=== PATIENT | female | born 1985 | race Two or more races ===

== ENCOUNTER 2016-11-30 21:41 | Emergency (ER) | payer SELFPAY ==
[~2016-11-30 21:41] MED LIST: CYCL10TA2 PO; HYDR-971 PO; LISI1TAB3 PO
[2016-12-01] MEDS ORDERED: OXYCODONE/APAP 5/325 TABLET. PO ONE
[2016-12-01] MEDS ORDERED: ORPHENADRINE CITRATE 60 MG/2 ML VIAL. IM ONE
--- NOTE | 2016-12-01 00:07 | PHYS DOC ---
Past Medical History Past Medical History: Bipolar, Hypertension Additional Past Medical Histor: back pain Past Surgical History: Smoking: Quit Greater Than 1 Year Alcohol Use: Occasionally Drug Use: None Adult General Chief Complaint Chief Complaint: BACK PAIN OR INJURY [facility] HPI Patient is a 30 year old female who presents with mid-back pain for 2 days. She reports that she fell 2 nights ago and hit her back against a wooden box. She was intoxicated at the time and does not remember the fall. Her friends witnessed the fall and report that she did not hit her head or lose consciousness with the fall. She has had shortness of breath since the injury due to the pain in her back. She denies headache, neck pain, weakness, or numbness. Upon arrival to the emergency department, her blood pressure is markedly elevated. She states that she took her blood pressure medications today. She does not have a headache or vision changes, which she often has with elevated blood pressure. She does not have a PCP. Review of Systems Review of Systems Constitutional: Denies fever or chills. [] Eyes: Denies change in visual acuity, redness, or eye pain. [] Respiratory: Denies cough. Reports shortness of breath. Cardiovascular: Denies chest pain. [] GI: Denies abdominal pain, nausea, vomiting. [] Musculoskeletal: Denies neck pain or joint pain. Reports mid-back pain. Integument: Denies rash or skin lesions. Denies laceration, abrasion, or ecchymosis. Neurologic: Denies headache, focal weakness or sensory changes. Denies loss of consciousness. All systems reviewed and negative unless otherwise stated in the HPI. Current Medications Current Medications Current Medications Medications (Trade) Dose Ordered Sig/Bryan Start Time Stop Time Status Last Admin Dose Admin Clonidine HCl (Catapres) 0.1 mg 1X ONCE 12/01/16 02:00 12/01/16 02:00 DC 12/01/16 01:49 0.1 MG Orphenadrine Citrate (Norflex) 60 mg 1X ONCE 12/01/16 00:00 12/01/16 00:01 DC 12/01/16 00:35 60 MG Oxycodone/ Acetaminophen (Percocet 5/325) 1 tab 1X ONCE 12/01/16 00:00 12/01/16 00:01 DC 12/01/16 00:34 1 TAB Allergies Allergies Allergies Coded Allergies Type Severity Reaction Last Updated Verified doxycycline Allergy Intermediate Hives 11/23/13 Yes Physical Exam Physical Exam Constitutional: Well developed, well nourished, no acute distress, non-toxic appearance. [] HENT: Normocephalic, atraumatic, oropharynx moist. [] Eyes: PERRLA, EOMI, conjunctiva normal, no discharge. [] Neck: Normal range of motion, no midline or paraspinal tenderness, supple, no stridor. [] Cardiovascular: Heart rate regular rhythm, no murmur. [] Lungs & Thorax: Bilateral breath sounds clear to auscultation without wheezes, rales, or rhonchi. [] Skin: Warm, dry, no erythema, no rash. There is no laceration, abrasion, ecchymosis, or other external sign of trauma. Back: Thoracic midline tenderness with right paraspinal muscle tenderness, no CVA tenderness. [] Extremities: No tenderness, ROM intact, no edema. Distal pulses equal bilaterally. [] Neurologic: Alert and oriented X 3, normal motor function, normal sensory function, no focal deficits noted. CN II-XII grossly intact. Psychologic: Affect normal, judgement normal, mood normal. [] Current Patient Data Vital Signs Vital Signs Date Time Temp Pulse Resp B/P Pulse Ox O2 Delivery O2 Flow Rate FiO2 12/01/16 01:49 88 237/134 12/01/16 00:34 Room Air 11/30/16 23:34 16 99 Lab Values Laboratory Tests Test 12/01/16 01:41 POC Hemoglobin 14.6g/dL (12-15) POC Hematocrit 43% (36-40) H POC Sodium 141mmol/L (135-145) POC Potassium 3.3mmol/L (3.5-5.0) L POC Chloride 104mmol/L (98-110) POC Total CO2 23mmol/L (23-32) Anion Gap 18mmol/L (6-14) H POC Blood Urea Nitrogen 10mg/dL (8-26) POC Creatinine 0.7mg/dL (0.5-1.4) Glucose Level 91mg/dL (70-99) POC Ionized Calcium (Pacheco) 1.14mmol/L (1.13-1.32) Laboratory Tests 12/01/16 01:41 EKG EKG [] Radiology/Procedures Radiology/Procedures X-rays of the thoracic spine reviewed and interpreted by myself with Dr. Cast. There are no acute fractures or dislocations. Course & Med Decision Making Course & Med Decision Making Pertinent Labs and Imaging studies reviewed. (See chart for details) Patient reported significant pain improvement after IM Norflex and oral Percocet. Upon arrival to the emergency department, her blood pressure was significantly elevated. Recheck of her blood pressure prior to discharge was still elevated. I discussed the patient with Dr. Cast. He recommends iSTAT to check renal function to assess for end-organ damage. Creatinine is 0.7 on iSTAT. The patient was given po clonidine 0.1mg in the emergency department. She was instructed to follow up with her PCP regarding her blood pressure as soon as possible. Return precautions were discussed. She verbalizes understanding and agrees with plan. Dragon Disclaimer Dragon Disclaimer This electronic medical record was generated, in whole or in part, using a voice recognition dictation system. Departure Departure Impression: Primary Impression: Thoracic back pain Additional Impression: Hypertension Disposition: 01 HOME, SELF-CARE Condition: IMPROVED Referrals: UNKNOWN PCP NAME (PCP) Patient Instructions: Back Pain, Adult, [id number] Additional Instructions: Your x-ray did not show any broken bones or dislocations. Please take the prescribed pain medication and muscle relaxer as directed. Do not drive or operate heavy machinery while taking these medications. Please avoid bending or lifting activities that may further strain your back. Please follow-up with a primary care provider if your pain continues. Return to the emergency department if you have weakness or numbness, difficulty breathing, or other new or concerning symptoms. Scripts Methocarbamol (Robaxin)500 Mg [id number] Mg PO QID #20 TAB Prov:ONIEL FISH 12/01/16 Hydrocodone/Apap 5-325 ([place] 5-325 Tablet)1 Each Tablet1 Tab PO PRN Q6HRS PRN PAIN #20 TAB Prov:ONIEL FISH 12/01/16 Problem Qualifiers Primary Impression: Thoracic back pain Chronicity: acute Back pain laterality: midline Qualified Code: M54.6 - Pain in thoracic spine Additional Impression: Hypertension Hypertension type: essential hypertension Qualified Code: I10 - Essential ( primary) hypertension ONIEL FISH Dec 01, 2016 00:07
[2016-12-01] MEDS ORDERED: METH-37 PO (01:14)
[2016-12-01] MEDS ORDERED: HYDR-971 PO (01:14)
[2016-12-01 01:44] LABS: POTASSIUM ISTAT 3.3 mmol/L (3.5-5.0)
[2016-12-01 01:49] VITALS: BP 237/134
[2016-12-01] MEDS ORDERED: CLONIDINE HCL 0.1 MG TABLET PO ONE (02:00)
--- NOTE | 2016-12-01 07:12 | RAD ---
Thoracic spine, 3 views, 11/30/2016: History: Pain, fall No fracture is identified. There are mild scattered marginal spurs. The paraspinous soft tissues are unremarkable. IMPRESSION: No acute thoracic spine abnormality is detected.
== END 2016-12-01 01:52 | disposition home or self-care (01) ==
LOC: ER 21:41
DX: M54.6 Pain in thoracic spine (principal); I10 Essential (primary) hypertension; F31.9 Bipolar disorder, unspecified; Z87.891 Personal history of nicotine dependence; Z88.1 Allergy status to other antibiotic agents
CPT/HCPCS: 72072; 80047; 96372; 99284; J2360

== ENCOUNTER 2017-05-03 20:57 | Emergency (ER) | payer SELFPAY ==
[~2017-05-03] VITALS: Ht 157.5 cm; Wt 99.8 kg
[~2017-05-03 20:57] MED LIST changes: +METH-37 PO
[2017-05-03 21:25] VITALS: BP 160/105
--- NOTE | 2017-05-03 21:53 | PHYS DOC ---
Past Medical History Past Medical History: Bipolar, Depression, Diabetes-Type II, High Cholesterol, Hypertension Additional Past Medical Histor: back pain Past Surgical History: , Other Additional Past Surgical Histo: L shoulder fx Alcohol Use: Occasionally Drug Use: None Adult General Chief Complaint Chief Complaint: UPPER EXTREMITY PAIN HPI HPI Patient is a 31 year old female presents emergency department stating that she has having left shoulder pain and discomfort that radiates up into her neck. She states that it does radiate up into her head. She states that she's been taken some naproxen which is helped some of the pain and swelling. She states she has decreased range of motion in the shoulder area. She states she does have a history of a fracture. She denies any numbness or tingling. She does have equal sensation noted bilaterally. Patient denies any injury or trauma to the upper extremity. Review of Systems Review of Systems Constitutional: Denies fever or chills [] Eyes: Denies change in visual acuity, redness, or eye pain [] HENT: Denies nasal congestion or sore throat [] Respiratory: Denies cough or shortness of breath [] Cardiovascular: No additional information not addressed in HPI [] GI: Denies abdominal pain, nausea, vomiting, bloody stools or diarrhea [] : Denies dysuria or hematuria [] Musculoskeletal: Denies back pain. Patient complaint of left shoulder pain and discomfort. Integument: Denies rash or skin lesions [] Neurologic: Denies headache, focal weakness or sensory changes [] Endocrine: Denies polyuria or polydipsia [] Allergies Allergies Allergies Coded Allergies Type Severity Reaction Last Updated Verified doxycycline Allergy Intermediate Hives 11/23/13 Yes Physical Exam Physical Exam Constitutional: Well developed, well nourished, no acute distress, non-toxic appearance. [] HENT: Normocephalic, atraumatic, bilateral external ears normal, oropharynx moist, no oral exudates, nose normal. [] Eyes: PERRLA, EOMI, conjunctiva normal, no discharge. [] Neck: Normal range of motion, no tenderness, supple, no stridor. [] Cardiovascular:Heart rate regular rhythm, no murmur [] Lungs & Thorax: Bilateral breath sounds clear to auscultation [] Skin: Warm, dry, no erythema, no rash. [] Back: No tenderness Extremities: Left upper shoulder tenderness, no cyanosis, no clubbing, ROM intact, no edema. Patient with slightly less marking machine tender on the left than the right. Patient with equal sensation noted bilaterally. Neurologic: Alert and oriented X 3, normal motor function, normal sensory function, no focal deficits noted. [] Psychologic: Affect normal, judgement normal, mood normal. [] Current Patient Data Vital Signs Vital Signs Date Time Temp Pulse Resp B/P (MAP) Pulse Ox O2 Delivery O2 Flow Rate FiO2 05/03/17 21:25 98.3 83 20 99 Room Air 98.3 EKG EKG [] Radiology/Procedures Radiology/Procedures [] Course & Med Decision Making Course & Med Decision Making Pertinent Labs and Imaging studies reviewed. (See chart for details) X-ray negative for bony abnormality. Patient will be placed in a sling with recommendations for ice packs on 20 minutes off 20 minutes several times a day. Patient was also recommended continue to use her naproxen. She'll be provided with orthopedic name and number to follow up with. Signs and symptoms to return back to emergency department has been provided. [] Dragon Disclaimer Dragon Disclaimer This electronic medical record was generated, in whole or in part, using a voice recognition dictation system. Departure Departure Impression: Primary Impression: Left shoulder pain Disposition: HOME, SELF-CARE Condition: STABLE Referrals: NO PCP (PCP) DANIEL GUERRERO MD Patient Instructions: Arm Sling Use-Brief, Shoulder Pain, [id number] Additional Instructions: Activity as tolerated Naproxen for pain and discomfort Ice packs on 20 minutes and off 20 minutes several times a day Elevation as much as possible Followup with primary care provider in 1 week Return to emergency department as needed for signs and symptoms that become worse. SHUN LUCIANO [employer] May 03, 2017 21:53
--- NOTE | 2017-05-04 07:26 | RAD ---
Indication: Left shoulder pain for 3 days. Time of exam 2157 hours. 3 views of the left shoulder demonstrate normal glenohumeral and acromioclavicular alignment. The acromiohumeral space is normal. No fracture or dislocation is identified. Impression: No acute bony abnormality is detected.
== END 2017-05-03 22:30 | disposition home or self-care (01) ==
LOC: ER 20:57
DX: M25.512 Pain in left shoulder (principal); E11.9 Type 2 diabetes mellitus without complications; E78.00 Pure hypercholesterolemia, unspecified; I10 Essential (primary) hypertension; F31.9 Bipolar disorder, unspecified; Z88.1 Allergy status to other antibiotic agents
CPT/HCPCS: 73030; 99284

== ENCOUNTER 2017-07-08 22:53 | Emergency (ER) | payer SELFPAY ==
[~2017-07-08] VITALS: Ht 157.5 cm; Wt 99.8 kg
[2017-07-08] MEDS ORDERED: CYCL10TA2 PO (23:29)
[2017-07-08] MEDS ORDERED: LISI1TAB3 PO (23:29)
[2017-07-08] MEDS ORDERED: TRAM50TA PO (23:29)
[2017-07-08] MEDS ORDERED: NAPR500T PO (23:29)
--- NOTE | 2017-07-08 23:30 | PHYS DOC ---
Past Medical History Past Medical History: Bipolar, Depression, Diabetes-Type II, High Cholesterol, Hypertension Additional Past Medical Histor: back pain Past Surgical History: , Tubal ligation, Other Additional Past Surgical Histo: L shoulder fx Alcohol Use: Occasionally Drug Use: None Adult General Chief Complaint Chief Complaint: SHOUDLER HPI HPI Patient is a 31 year old female presents to the emergency department with right upper back pain. She states that 2 days ago she was pushing a machine developed upper back pain. She states it's gotten progressively worse. She is here now seeking further evaluation. Review of Systems Review of Systems Constitutional: Denies fever or chills [] Eyes: Denies change in visual acuity, redness, or eye pain [] HENT: Denies nasal congestion or sore throat [] Respiratory: Denies cough or shortness of breath [] Cardiovascular: No additional information not addressed in HPI [] GI: Denies abdominal pain, nausea, vomiting, bloody stools or diarrhea [] : Denies dysuria or hematuria [] Musculoskeletal: Upper back pain Integument: Denies rash or skin lesions [] Neurologic: Denies headache, focal weakness or sensory changes [] Endocrine: Denies polyuria or polydipsia [] Current Medications Current Medications Current Medications Medications (Trade) Dose Ordered Sig/Bryan Start Time Stop Time Status Last Admin Dose Admin Clonidine HCl (Catapres) 0.1 mg 1X ONCE 07/08/17 23:45 07/08/17 23:46 07/08/17 23:31 0.1 MG Allergies Allergies Allergies Coded Allergies Type Severity Reaction Last Updated Verified doxycycline Allergy Intermediate Hives 11/23/13 Yes Physical Exam Physical Exam Constitutional: Well developed, well nourished, no acute distress, non-toxic appearance. [] HENT: Normocephalic, atraumatic, bilateral external ears normal, oropharynx moist, no oral exudates, nose normal. [] Eyes: PERRLA, EOMI, conjunctiva normal, no discharge. [] Neck: Normal range of motion, no tenderness, supple, no stridor. [] Cardiovascular:Heart rate regular rhythm, no murmur [] Lungs & Thorax: Bilateral breath sounds clear to auscultation [] Abdomen: Bowel sounds normal, soft, no tenderness, no masses, no pulsatile masses. [] Skin: Warm, dry, no erythema, no rash. [] Back: Tender so the right trapezius. She has full range of motion of the right upper extremity without difficulty. Extremities: No tenderness, no cyanosis, no clubbing, ROM intact, no edema. [] Neurovascular intact distally. Neurologic: Alert and oriented X 3, normal motor function, normal sensory function, no focal deficits noted. [] Psychologic: Affect normal, judgement normal, mood normal. [] Current Patient Data Vital Signs Vital Signs Date Time Temp Pulse Resp B/P (MAP) Pulse Ox O2 Delivery O2 Flow Rate FiO2 07/08/17 23:31 68 186/116 07/08/17 23:12 98.0 20 97 Room Air 98.0 EKG EKG [] Radiology/Procedures Radiology/Procedures [] Course & Med Decision Making Course & Med Decision Making Pertinent Labs and Imaging studies reviewed. (See chart for details) [] Since blood pressure was elevated at 211/117. Patient states she took her hydrochlorothiazide 25 mg tablet prior to arrival in the emergency department this evening. Patient reports that her blood pressures been consistently high. She does follow at the [facility] clinic. She states she has not had an appointment for 6-7 months but plans to go in the following Thursday. Patient was treated in the emergency Department with clonidine 0.1 mg for reduction in her blood pressure tp 178/90. At this time it is elected to start her on lisinopril 10 mg combination in with hydrochlorothiazide 12.5 mg 1 tablet daily. She was advised to continue plan with follow-up in 6 days as previously scheduled. She is to return to the emergency Department for new symptoms or concerns or worsening of current condition. Dragon Disclaimer Dragon Disclaimer This electronic medical record was generated, in whole or in part, using a voice recognition dictation system. Departure Departure Impression: Primary Impression: Shoulder pain, right Additional Impression: Hypertension Disposition: HOME, SELF-CARE Condition: STABLE Referrals: UNKNOWN PCP NAME (PCP) [facility] Patient Instructions: Hypertension, Shoulder Pain Scripts Tramadol Hcl (TRAMADOL HCL) 50 Mg Tablet 50 MG PO Q8HRS Y for PAIN, #12 TAB 0 Refills Prov: TARA BAZAN APRN 07/08/17 Naproxen (NAPROSYN) 500 Mg Tablet 500 MG PO BID, #20 TAB Prov: TARA BAZAN APRN 07/08/17 Cyclobenzaprine Hcl (CYCLOBENZAPRINE HCL) 10 Mg Tablet 10 MG PO TID, #30 TAB Prov: TARA BAZAN APRN 07/08/17 Lisinopril/Hydrochlorothiazide (LISINOPRIL-HCTZ 10-12.5 MG TAB) 1 Each Tablet 1 TAB PO DAILY, #30 TAB 5 Refills Prov: TARA BAZAN APRN 07/08/17 Problem Qualifiers Primary Impression: Shoulder pain, right Chronicity: acute Qualified Codes: M25.511 - Pain in right shoulder Additional Impression: Hypertension Hypertension type: unspecified Qualified Codes: I10 - Essential (primary) hypertension TARA BAZAN APRN Jul 08, 2017 23:30
[2017-07-08 23:31] VITALS: BP 186/116
[2017-07-08] MEDS ORDERED: cloNIDine HCL 0.1 MG TABLET PO ONE (23:45)
== END 2017-07-08 23:39 | disposition home or self-care (01) ==
LOC: ER 22:53
DX: M25.511 Pain in right shoulder (principal); I10 Essential (primary) hypertension; F31.9 Bipolar disorder, unspecified; E11.9 Type 2 diabetes mellitus without complications; E78.00 Pure hypercholesterolemia, unspecified; Z88.1 Allergy status to other antibiotic agents
CPT/HCPCS: 99283

== ENCOUNTER 2017-11-05 04:52 | Emergency (ER) | payer BC ==
[2017-11-05] MEDS: KETOROLAC 60 MG/2 ML INJ. IM (05:35)
[2017-11-05] MEDS: ORPHENADRINE CITRATE 60 MG/2 ML VIAL. IM (05:35)
[2017-11-05] MEDS: HYDROcodone/APAP 10/325 1 TAB TABLET PO (05:36)
== END 2017-11-05 06:55 | disposition home or self-care (01) ==
LOC: ER 04:52
DX: S39.012A Strain of muscle, fascia and tendon of lower back, initial encounter (principal); F31.9 Bipolar disorder, unspecified; E11.9 Type 2 diabetes mellitus without complications; E78.00 Pure hypercholesterolemia, unspecified; I10 Essential (primary) hypertension; F12.10 Cannabis abuse, uncomplicated; Z98.51 Tubal ligation status; Z88.1 Allergy status to other antibiotic agents; X58.XXXA Exposure to other specified factors, initial encounter; Y93.89 Activity, other specified; Y92.89 Other specified places as the place of occurrence of the external cause; Y99.8 Other external cause status
CPT/HCPCS: 96372; 99284-25; J1885; J2360

== ENCOUNTER 2017-12-06 19:22 | Emergency (ER) | payer BC | END 2017-12-06 20:45 | disposition home or self-care (01) | LOC: ER 19:22 | DX: S90.31XA Contusion of right foot, initial encounter (principal); F31.9 Bipolar disorder, unspecified; E11.9 Type 2 diabetes mellitus without complications; E78.00 Pure hypercholesterolemia, unspecified; I10 Essential (primary) hypertension; F12.10 Cannabis abuse, uncomplicated; Z98.51 Tubal ligation status; Z88.1 Allergy status to other antibiotic agents; W22.8XXA Striking against or struck by other objects, initial encounter; Y93.89 Activity, other specified; Y92.009 Unspecified place in unspecified non-institutional (private) residence as the place of occurrence of the external cause; Y99.8 Other external cause status | CPT/HCPCS: 73630; 99284 ==

== ENCOUNTER 2017-12-12 02:45 | Emergency (ER) | payer BC ==
[2017-12-12] MEDS: ACETAMINOPHEN 500 MG TABLET PO ×2 (03:15)
[2017-12-12 03:17] LABS: INFLUENZA A PATIENT NEGATIVE (NEGATIVE)
[2017-12-12 03:18] LABS: INFLUENZA B PATIENT POSITIVE (NEGATIVE); OBC FLU VALID
[2017-12-12] MEDS: cloNIDine HCL 0.1 MG TABLET PO ×2 (04:00)
== END 2017-12-12 04:14 | disposition home or self-care (01) ==
LOC: ER 02:45
DX: J10.1 Influenza due to other identified influenza virus with other respiratory manifestations (principal); I10 Essential (primary) hypertension; F31.9 Bipolar disorder, unspecified; E11.9 Type 2 diabetes mellitus without complications; E78.00 Pure hypercholesterolemia, unspecified; F12.10 Cannabis abuse, uncomplicated; Z98.51 Tubal ligation status; Z87.891 Personal history of nicotine dependence; Z88.1 Allergy status to other antibiotic agents
CPT/HCPCS: 71046; 87804; 87804-59; 99285-25

== ENCOUNTER 2017-12-26 11:45 | Emergency (ER) | payer BC ==
[2017-12-26] MEDS: ERYTHROMYCIN 0.5% OPHTH OINTMENT 1GM TUBE. OS ×2 (12:07)
== END 2017-12-26 12:10 | disposition home or self-care (01) ==
LOC: ER 11:45
DX: H10.32 Unspecified acute conjunctivitis, left eye (principal); F31.9 Bipolar disorder, unspecified; E11.9 Type 2 diabetes mellitus without complications; E78.00 Pure hypercholesterolemia, unspecified; I10 Essential (primary) hypertension; F12.10 Cannabis abuse, uncomplicated; Z98.51 Tubal ligation status; Z88.1 Allergy status to other antibiotic agents
CPT/HCPCS: 99283

== ENCOUNTER 2018-01-17 14:00 | Emergency (ER) | payer BC ==
[2018-01-17] MEDS: diazePAM 5 MG TABLET PO (15:09)
[2018-01-17] MEDS: NAPROXEN 500 MG TABLET PO (15:09)
[2018-01-17] MEDS: HYDROcodone/APAP 5/325MG 1 TAB TABLET PO (15:09)
== END 2018-01-17 15:36 | disposition home or self-care (01) ==
LOC: ER 14:00
DX: M54.41 Lumbago with sciatica, right side (principal); I10 Essential (primary) hypertension; E78.00 Pure hypercholesterolemia, unspecified; E11.9 Type 2 diabetes mellitus without complications; F31.9 Bipolar disorder, unspecified; F12.10 Cannabis abuse, uncomplicated; Z98.51 Tubal ligation status; Z88.1 Allergy status to other antibiotic agents
CPT/HCPCS: 99284

== ENCOUNTER 2018-01-29 14:08 | Emergency (ER) | payer BC | END 2018-01-29 15:20 | disposition home or self-care (01) | LOC: ER 14:08 | DX: L25.9 Unspecified contact dermatitis, unspecified cause (principal); H70.91 Unspecified mastoiditis, right ear; H65.191 Other acute nonsuppurative otitis media, right ear; I10 Essential (primary) hypertension; F17.210 Nicotine dependence, cigarettes, uncomplicated; Z88.1 Allergy status to other antibiotic agents | CPT/HCPCS: 99283 ==

== ENCOUNTER 2018-03-01 00:04 | Emergency (ER) | payer BC ==
[2018-03-01 00:43] LABS: URINE HCG POC HCG NEGATIVE (Negative)
[2018-03-01 00:48] LABS: BILIRUBIN,URINE NEGATIVE (NEG); CLARITY,URINE CLEAR; COLOR,URINE YELLOW; GLUCOSE,URINE NEGATIVE (NEG); NITRITE,URINE NEGATIVE (NEG); PROTEIN,URINE NEGATIVE (NEG-TRACE); UROBILINOGEN,URINE 0.2 mg/dL (0.2 mg/dL)
[2018-03-01 00:52] LABS: ADD MAN DIFF? NO
[2018-03-01 00:54] LABS: BASO # 0.1 x10^3/uL (0.0-0.2); BASO % 1 % (0-3); EOS # 0.4 x10^3/uL (0.0-0.7); EOS % 4 % (0-3); HEMOGLOBIN 14.2 g/dL (12.0-15.5); LYMPH # 2.5 x10^3/uL (1.0-4.8); LYMPH % 23 % (24-48); MEAN CORPUSCULAR HEMOGLOBIN 32 pg (25-35); MEAN CORPUSCULAR HGB CONC 35 g/dL (31-37); MEAN CORPUSCULAR VOLUME 91 fL (79-100); MONO # 0.5 x10^3/uL (0.0-1.1); MONO % 4 % (0-9); NEUT # 7.5 x10^3uL (1.8-7.7); NEUT % 68 % (31-73); PLATELET COUNT 226 x10^3/uL (140-400); RED BLOOD COUNT 4.51 x10^6/uL (3.50-5.40); RED CELL DISTRIBUTION WIDTH 14.4 % (11.5-14.5); WHITE BLOOD COUNT 11.1 x10^3/uL (4.0-11.0)
[2018-03-01 00:58] LABS: BACTERIA,URINE FEW /HPF (0-FEW); SQUAMOUS EPITHELIAL CELL,UR MANY /LPF
[2018-03-01 01:11] LABS: ALBUMIN 2.7 g/dL (3.4-5.0); ALBUMIN/GLOBULIN RATIO 0.6 (1.0-1.7); ALK PHOS 96 U/L (46-116); ALT (SGPT) 44 U/L (14-59); ANION GAP 12 (6-14); AST (SGOT) 30 U/L (15-37); BLOOD UREA NITROGEN 18 mg/dL (7-20); BUN/CREATININE RATIO 20 (6-20); CALCIUM 8.1 mg/dL (8.5-10.1); CARBON DIOXIDE 24 mmol/L (21-32); CHLORIDE 106 mmol/L (98-107); CREATININE 0.9 mg/dL (0.6-1.0); GFR 72.1; GLUCOSE 157 mg/dL (70-99); SODIUM 142 mmol/L (136-145); TOTAL BILIRUBIN 0.2 mg/dL (0.2-1.0)
[2018-03-01 01:14] LABS: POTASSIUM 2.9 mmol/L (3.5-5.1)
[2018-03-01] MEDS: POTASSIUM CHLORIDE 20 MEQ TABLET.ER. PO (01:26)
== END 2018-03-01 03:45 | disposition home or self-care (01) ==
LOC: ER 00:04
DX: N23 Unspecified renal colic (principal); E87.6 Hypokalemia; F12.10 Cannabis abuse, uncomplicated; I10 Essential (primary) hypertension; Z98.51 Tubal ligation status; Z88.1 Allergy status to other antibiotic agents
CPT/HCPCS: 36415; 74176; 80053; 81001; 81025; 85025; 93005; 99285-25

== ENCOUNTER 2018-04-05 15:20 | Emergency (ER) | payer BC ==
[2018-04-05] MEDS ORDERED: IV NORMAL SALINE 1000ML BAG 1,000 ML IV (15:30)
[2018-04-05] MEDS ORDERED: ONDANSETRON PF 4 MG/2 ML VIAL. IV (15:30)
== END 2018-04-05 16:00 | disposition home or self-care (01) ==
LOC: ER 15:20
DX: K21.9 Gastro-esophageal reflux disease without esophagitis (principal); I10 Essential (primary) hypertension; F12.10 Cannabis abuse, uncomplicated; Z79.899 Other long term (current) drug therapy; Z88.1 Allergy status to other antibiotic agents
CPT/HCPCS: 99282

== ENCOUNTER 2018-11-08 06:48 | Emergency (ER) | payer SELFPAY ==
[~2018-11-08] VITALS: Ht 157.5 cm; Wt 113.4 kg
[~2018-11-08 06:48] MED LIST changes: +AMOX875T PO; +ERYT1OIN6 OS; +FAMO20TA5 PO; +HYDR-3164 PO; -HYDR-971 PO; +IBUP-1007 PO; +NAPR-514 PO; +NAPR-683 PO; +OSEL75CA PO; +POTA20TA82 PO; +PRED50TA PO; +RANI150T21 PO; +TRAM50TA PO; +TRIA15CR3 TP
[2018-11-08] MEDS ORDERED: IV NORMAL SALINE 1000ML BAG 1,000 ML IV ONE (07:30)
[2018-11-08] MEDS ORDERED: ONDANSETRON PF 4 MG/2 ML VIAL. IV ONE (07:30)
[2018-11-08] MEDS ORDERED: fentaNYL PF VIAL 100 MCG/2 ML VIAL IV ONE (07:30)
--- NOTE | 2018-11-08 07:33 | PHYS DOC ---
Past Medical History Past Medical History: Hypertension Additional Past Medical Histor: back pain Past Surgical History: , Tubal ligation Additional Past Surgical Histo: L shoulder fx Alcohol Use: Occasionally Drug Use: Marijuana Adult General Chief Complaint Chief Complaint: ABDOMINAL PAIN HPI HPI 32-year-old female presents with 2-3 hour history of right upper quadrant pain. She states the pain is severe and radiates to her right upper back. She does have some associated nausea and vomiting. Patient denies any fever chills or sweats. She states she's never had this kind of pain before. She's never had gallbladder problems that she knows of. She denies any melena or hematemesis. She denies any NSAID use.[] Review of Systems Review of Systems Constitutional: Denies fever or chills [] Eyes: Denies change in visual acuity, redness, or eye pain [] HENT: Denies nasal congestion or sore throat [] Respiratory: Denies cough or shortness of breath [] Cardiovascular: No additional information not addressed in HPI [] GI: Per history of present illness[] : Denies dysuria or hematuria [] Musculoskeletal: Denies back pain or joint pain [] Integument: Denies rash or skin lesions [] Neurologic: Denies headache, focal weakness or sensory changes [] Endocrine: Denies polyuria or polydipsia [] All other systems were reviewed and found to be within normal limits, except as documented in this note. Current Medications Current Medications Current Medications Medications (Trade) Dose Ordered Sig/Bryan Start Time Stop Time Status Last Admin Dose Admin Fentanyl Citrate (Fentanyl 2ml Vial) 50 mcg 1X ONCE 11/08/18 07:30 11/08/18 07:31 DC 11/08/18 08:26 50 MCG Ondansetron HCl (Zofran) 4 mg 1X ONCE 11/08/18 07:30 11/08/18 07:31 DC 11/08/18 08:23 4 MG Sodium Chloride 1,000 ml @ 1,000 mls/hr 1X ONCE 11/08/18 07:30 11/08/18 08:29 DC 11/08/18 08:22 1,000 MLS/HR Allergies Allergies Allergies Coded Allergies Type Severity Reaction Last Updated Verified doxycycline Allergy Intermediate Hives 11/23/13 Yes Physical Exam Physical Exam Constitutional: Well developed, well nourished, no acute distress, non-toxic appearance. [] HENT: Normocephalic, atraumatic, bilateral external ears normal, oropharynx moist, no oral exudates, nose normal. [] Eyes: PERRLA, EOMI, conjunctiva normal, no discharge. [] Neck: Normal range of motion, no tenderness, supple, no stridor. [] Cardiovascular:Heart rate regular rhythm, no murmur [] Lungs & Thorax: Bilateral breath sounds clear to auscultation [] Abdomen: Right upper quadrant pain tender to palp positive Pereira's[] Skin: Warm, dry, no erythema, no rash. [] Back: No tenderness, no CVA tenderness. [] Extremities: No tenderness, no cyanosis, no clubbing, ROM intact, no edema. [] Neurologic: Alert and oriented X 3, normal motor function, normal sensory function, no focal deficits noted. [] Psychologic: Affect normal, judgement normal, mood normal. [] Current Patient Data Vital Signs Vital Signs Date Time Temp Pulse Resp B/P (MAP) Pulse Ox O2 Delivery O2 Flow Rate FiO2 11/08/18 09:00 72 16 165/99 (121) 93 Room Air 11/08/18 07:27 97.8 97.8 Lab Values Laboratory Tests Test 11/08/18 07:35 11/08/18 07:39 11/08/18 08:09 Urine Collection Type Clean catch Urine Color Yellow Urine Clarity Clear Urine pH 6.5 Urine Specific Etlan 1.020 Urine Protein 30 mg/dL (NEG-TRACE) Urine Glucose (UA) Negative mg/dL (NEG) Urine Ketones (Stick) Negative mg/dL (NEG) Urine Blood Negative (NEG) Urine Nitrite Negative (NEG) Urine Bilirubin Negative (NEG) Urine Urobilinogen Dipstick 0.2 mg/dL (0.2 mg/dL) Urine Leukocyte Esterase Small (NEG) Urine RBC Occ /HPF (0-2) Urine WBC 1-4 /HPF (0-4) Urine Squamous Epithelial Cells Few /LPF Urine Bacteria Few /HPF (0-FEW) Urine Mucus Slight /LPF POC Urine HCG, Qualitative Hcg negative (Negative) White Blood Count 7.5 x10^3/uL (4.0-11.0) Red Blood Count 4.36 x10^6/uL (3.50-5.40) Hemoglobin 14.3 g/dL (12.0-15.5) Hematocrit 40.1 % (36.0-47.0) Mean Corpuscular Volume 92 fL (79-100) Mean Corpuscular Hemoglobin 33 pg (25-35) Mean Corpuscular Hemoglobin Concent 36 g/dL (31-37) Red Cell Distribution Width 14.5 % (11.5-14.5) Platelet Count 202 x10^3/uL (140-400) Neutrophils (%) (Auto) 60 % (31-73) Lymphocytes (%) (Auto) 30 % (24-48) Monocytes (%) (Auto) 7 % (0-9) Eosinophils (%) (Auto) 3 % (0-3) Basophils (%) (Auto) 1 % (0-3) Neutrophils # (Auto) 4.4 x10^3uL (1.8-7.7) Lymphocytes # (Auto) 2.2 x10^3/uL (1.0-4.8) Monocytes # (Auto) 0.5 x10^3/uL (0.0-1.1) Eosinophils # (Auto) 0.2 x10^3/uL (0.0-0.7) Basophils # (Auto) 0.1 x10^3/uL (0.0-0.2) Sodium Level 141 mmol/L (136-145) Potassium Level 3.0 mmol/L (3.5-5.1) L Chloride Level 102 mmol/L (98-107) Carbon Dioxide Level 29 mmol/L (21-32) Anion Gap 10 (6-14) Blood Urea Nitrogen 16 mg/dL (7-20) Creatinine 1.0 mg/dL (0.6-1.0) Estimated GFR (Cockcroft-Gault) 63.9 BUN/Creatinine Ratio 16 (6-20) Glucose Level 100 mg/dL (70-99) H Calcium Level 8.8 mg/dL (8.5-10.1) Total Bilirubin 0.4 mg/dL (0.2-1.0) Aspartate Amino Transferase (AST) 67 U/L (15-37) H Alanine Aminotransferase (ALT) 70 U/L (14-59) H Alkaline Phosphatase 101 U/L (46-116) Total Protein 7.1 g/dL (6.4-8.2) Albumin 2.8 g/dL (3.4-5.0) L Albumin/Globulin Ratio 0.7 (1.0-1.7) L Lipase 174 U/L (73-393) Laboratory Tests 11/08/18 08:09 Laboratory Tests 11/08/18 08:09 EKG EKG [] Radiology/Procedures Radiology/Procedures [] Impressions: STATUS: REG ERORD. PHYSICIAN: TIMO MEEKS DO REASON: RUQ PAIN PROCEDURE: ABDOMEN LTD EXAM: Abdomen sonogram. HISTORY: Pain. TECHNIQUE: Sonographic imaging of the abdomen was performed. COMPARISON: CT dated 03/01/2018. FINDINGS: The exam is extremely limited due to body habitus and bowel gas. The pancreas, aorta, inferior vena cava, common bile duct gallbladder and portions of the liver are obscured. There is hepatomegaly and hepatic steatosis. The visualized portions the gallbladder are unremarkable. The right kidney is unremarkable. IMPRESSION: 1. Severely limited exam due to bowel gas and body habitus. The midline structures are obscured. 2. Hepatomegaly and hepatic steatosis. Course & Med Decision Making Course & Med Decision Making Pertinent Labs and Imaging studies reviewed. (See chart for details) ED course: Evaluation reveals a 32-year-old female with epigastric/right upper quadrant pain that started this morning. She did have some tenderness in her right upper quadrant on exam. She was given IV fluids, fentanyl 50 g and Zofran which did alleviate her symptoms. I checked on her again approximately 2 hours after arrival and she was pain free. Laboratory studies were unrevealing. Patient is safe for discharge home. I did let her know that she will need further studies on her gallbladder should she develop any similar symptoms. I' ve instructed her about a low-fat no spicy or greasy foods.] Dragon Disclaimer Dragon Disclaimer This electronic medical record was generated, in whole or in part, using a voice recognition dictation system. Departure Departure Impression: Primary Impression: Epigastric pain Disposition: HOME, SELF-CARE Condition: IMPROVED Referrals: NO PCP (PCP) Patient Instructions: Abdominal Pain Additional Instructions: Return to the emergency department with any new or concerning symptoms Scripts Ranitidine Hcl (ZANTAC) 300 Mg Tablet 1 TAB PO QHS for reflux, #90 TAB 3 Refills Prov: TIMO MEEKS DO 11/08/18 Ondansetron (ONDANSETRON ODT) 4 Mg Tab.rapdis 1 TAB PO PRN Q6-8HRS for VOMITING, #16 TAB Prov: TIMO MEEKS DO 11/08/18 TIMO MEEKS DO Nov 08, 2018 07:33
[2018-11-08 08:01] LABS: BILIRUBIN,URINE NEGATIVE (NEG); CLARITY,URINE CLEAR; COLOR,URINE YELLOW; NITRITE,URINE NEGATIVE (NEG); PH,URINE 6.5; PROTEIN,URINE 30 mg/dL (NEG-TRACE); UROBILINOGEN,URINE 0.2 mg/dL (0.2 mg/dL)
[2018-11-08 08:11] LABS: BACTERIA,URINE FEW /HPF (0-FEW); RBC,URINE OCC /HPF (0-2); SQUAMOUS EPITHELIAL CELL,UR FEW /LPF
--- NOTE | 2018-11-08 08:14 | RAD ---
EXAM: Abdomen sonogram. HISTORY: Pain. TECHNIQUE: Sonographic imaging of the abdomen was performed. COMPARISON: CT dated 03/01/2018. FINDINGS: The exam is extremely limited due to body habitus and bowel gas. The pancreas, aorta, inferior vena cava, common bile duct gallbladder and portions of the liver are obscured. There is hepatomegaly and hepatic steatosis. The visualized portions the gallbladder are unremarkable. The right kidney is unremarkable. IMPRESSION: 1. Severely limited exam due to bowel gas and body habitus. The midline structures are obscured. 2. Hepatomegaly and hepatic steatosis. Electronically signed by: Jina Mares MD (11/08/2018 8:10 AM) [facility]
[2018-11-08 08:23] LABS: BASO # 0.1 x10^3/uL (0.0-0.2); BASO % 1 % (0-3); EOS # 0.2 x10^3/uL (0.0-0.7); EOS % 3 % (0-3); HEMATOCRIT 40.1 % (36.0-47.0); HEMOGLOBIN 14.3 g/dL (12.0-15.5); LYMPH # 2.2 x10^3/uL (1.0-4.8); LYMPH % 30 % (24-48); MEAN CORPUSCULAR HEMOGLOBIN 33 pg (25-35); MEAN CORPUSCULAR HGB CONC 36 g/dL (31-37); MEAN CORPUSCULAR VOLUME 92 fL (79-100); MONO # 0.5 x10^3/uL (0.0-1.1); MONO % 7 % (0-9); NEUT # 4.4 x10^3uL (1.8-7.7); NEUT % 60 % (31-73); PLATELET COUNT 202 x10^3/uL (140-400); RED BLOOD COUNT 4.36 x10^6/uL (3.50-5.40); RED CELL DISTRIBUTION WIDTH 14.5 % (11.5-14.5); WHITE BLOOD COUNT 7.5 x10^3/uL (4.0-11.0)
[2018-11-08 08:33] LABS: CALCIUM 8.8 mg/dL (8.5-10.1); GFR 63.9
[2018-11-08 08:39] LABS: ALBUMIN 2.8 g/dL (3.4-5.0); ALBUMIN/GLOBULIN RATIO 0.7 (1.0-1.7); TOTAL BILIRUBIN 0.4 mg/dL (0.2-1.0); TOTAL PROTEIN 7.1 g/dL (6.4-8.2)
[2018-11-08 09:31] VITALS: BP 160/87
[2018-11-08] MEDS ORDERED: RANI300T3 PO (09:34)
[2018-11-08] MEDS ORDERED: ONDA4TAB12 PO (09:34)
== END 2018-11-08 10:01 | disposition home or self-care (01) ==
LOC: ER 06:48
DX: R10.13 Epigastric pain (principal); I10 Essential (primary) hypertension; Z88.1 Allergy status to other antibiotic agents
CPT/HCPCS: 36415; 76705; 80053; 81001; 81025; 83690; 85025; 87086; 96361; 96374; 96375; 99284; J2405; J3010; J7030

== ENCOUNTER 2019-08-13 18:40 | Emergency (ER) | payer SELFPAY ==
[~2019-08-13] VITALS: Ht 157.5 cm; Wt 113.4 kg
[~2019-08-13 18:40] MED LIST changes: +LISI1TAB23 PO; -LISI1TAB3 PO; +ONDA4TAB12 PO; +RANI-376 PO; -RANI150T21 PO; +RANI300T3 PO
--- NOTE | 2019-08-13 19:03 | PHYS DOC ---
Past Medical History Past Medical History: Hypertension Additional Past Medical Histor: back pain Past Surgical History: , Tubal ligation Additional Past Surgical Histo: L shoulder fx Alcohol Use: None Drug Use: None, Marijuana Adult General Chief Complaint Chief Complaint: NEURO SYMPTOMS/DEFICITS HPI HPI Patient is a 33 year old f p/w hx of seizures seizure today manages it at home comes in clusters like 30 minutes tingling of hands and also some of the crampi ng of the b/l hands (she displays a carpal spasm while describing it) was on keppra in the past. she caleld in to work and they asked for a work note prior to coming back. did not take blood pressure medications taking benadryl to stop the "seizures" "it knocks them out very well" meds:hctz smoke, etoh most days 3/4 cocktails a night. currently feeling ok "pulling-ness" in the left face with sharp pain in the left hand. hand is trying to lock up again. Review of Systems Review of Systems Constitutional: Denies fever or chills [] Cardiovascular: No additional information not addressed in HPI [] GI: Denies abdominal pain, nausea, vomiting, bloody stools or diarrhea [] : Denies dysuria or hematuria [] Musculoskeletal: Denies back pain or joint pain [] Integument: Denies rash or skin lesions [] Neurologic: All other systems were reviewed and found to be within normal limits, except as documented in this note. Current Medications Current Medications Current Medications Medications (Trade) Dose Ordered Sig/Bryan Start Time Stop Time Status Last Admin Dose Admin Clonidine HCl (Catapres) 0.2 mg 1X ONCE 08/13/19 19:45 08/13/19 19:46 DC 08/13/19 19:41 0.2 MG Diphenhydramine HCl (Benadryl) 25 mg 1X ONCE 08/13/19 19:30 08/13/19 19:31 DC 08/13/19 19:24 25 MG Ketorolac Tromethamine (Toradol 15mg Vial) 15 mg 1X ONCE 08/13/19 20:45 08/13/19 20:46 DC Lorazepam (Ativan Inj) 1 mg 1X ONCE 08/13/19 19:30 08/13/19 19:31 DC 08/13/19 19:24 1 MG Potassium Chloride (Klor-Con) 20 meq 1X ONCE 08/13/19 20:30 08/13/19 20:31 DC 08/13/19 20:24 20 MEQ Allergies Allergies Allergies Coded Allergies Type Severity Reaction Last Updated Verified doxycycline Allergy Intermediate Hives 11/23/13 Yes Physical Exam Physical Exam Constitutional: Well developed, over nourished, no acute distress, non-toxic appearance. [] HENT: Normocephalic, atraumatic, bilateral external ears normal, oropharynx moist, no oral exudates, nose normal. [] Eyes: PERRLA, EOMI, conjunctiva normal, no discharge. [] Neck: Normal range of motion, no tenderness, supple, no stridor. [] Cardiovascular:Heart rate regular rhythm, no murmur [] Lungs & Thorax: Bilateral breath sounds clear to auscultation [] Abdomen: Bowel sounds normal, soft, no tenderness, no masses, no pulsatile masses. [] Skin: Warm, dry, no erythema, no rash. [] Back: No tenderness, no CVA tenderness. [] Extremities: No tenderness, no cyanosis, no clubbing, ROM intact, no edema. [] Neurologic: Alert and oriented X 3, normal motor function, normal sensory function, no focal deficits noted. [] Psychologic: Affect normal, judgement normal, mood mild anxiety noted[] Current Patient Data Vital Signs Vital Signs Date Time Temp Pulse Resp B/P (MAP) Pulse Ox O2 Delivery O2 Flow Rate FiO2 08/13/19 19:51 75 16 97 08/13/19 19:41 165/98 08/13/19 18:40 98.6 Room Air 98.6 Lab Values Laboratory Tests Test 08/13/19 19:20 08/13/19 19:25 08/13/19 19:35 White Blood Count 8.2 x10^3/uL (4.0-11.0) Red Blood Count 4.44 x10^6/uL (3.50-5.40) Hemoglobin 14.7 g/dL (12.0-15.5) Hematocrit 42.9 % (36.0-47.0) Mean Corpuscular Volume 97 fL (79-100) Mean Corpuscular Hemoglobin 33 pg (25-35) Mean Corpuscular Hemoglobin Concent 34 g/dL (31-37) Red Cell Distribution Width 14.2 % (11.5-14.5) Platelet Count 222 x10^3/uL (140-400) Neutrophils (%) (Auto) 70 % (31-73) Lymphocytes (%) (Auto) 23 % (24-48) L Monocytes (%) (Auto) 5 % (0-9) Eosinophils (%) (Auto) 3 % (0-3) Basophils (%) (Auto) 1 % (0-3) Neutrophils # (Auto) 5.7 x10^3/uL (1.8-7.7) Lymphocytes # (Auto) 1.9 x10^3/uL (1.0-4.8) Monocytes # (Auto) 0.4 x10^3/uL (0.0-1.1) Eosinophils # (Auto) 0.2 x10^3/uL (0.0-0.7) Basophils # (Auto) 0.1 x10^3/uL (0.0-0.2) Sodium Level 143 mmol/L (136-145) Potassium Level 3.1 mmol/L (3.5-5.1) L Chloride Level 103 mmol/L (98-107) Carbon Dioxide Level 28 mmol/L (21-32) Anion Gap 12 (6-14) Blood Urea Nitrogen 12 mg/dL (7-20) Creatinine 1.2 mg/dL (0.6-1.0) H Estimated GFR (Cockcroft-Gault) 51.4 BUN/Creatinine Ratio 10 (6-20) Glucose Level 177 mg/dL (70-99) H Calcium Level 9.0 mg/dL (8.5-10.1) Total Bilirubin 0.5 mg/dL (0.2-1.0) Aspartate Amino Transferase (AST) 58 U/L (15-37) H Alanine Aminotransferase (ALT) 69 U/L (14-59) H Alkaline Phosphatase 94 U/L (46-116) Troponin I Quantitative < 0.017 ng/mL (0.000-0.055) Total Protein 7.2 g/dL (6.4-8.2) Albumin 3.1 g/dL (3.4-5.0) L Albumin/Globulin Ratio 0.8 (1.0-1.7) L Ethyl Alcohol Level < 10 mg/dL (0-10) Urine Collection Type Unknown Urine Color Yellow Urine Clarity Clear Urine pH 6.5 Urine Specific [place] 1.010 Urine Protein Negative mg/dL (NEG-TRACE) Urine Glucose (UA) Negative mg/dL (NEG) Urine Ketones (Stick) Negative mg/dL (NEG) Urine Blood Negative (NEG) Urine Nitrite Negative (NEG) Urine Bilirubin Negative (NEG) Urine Urobilinogen Dipstick 0.2 mg/dL (0.2 mg/dL) Urine Leukocyte Esterase Negative (NEG) Urine RBC Occ /HPF (0-2) Urine WBC 5-10 /HPF (0-4) Urine Squamous Epithelial Cells Many /LPF Urine Bacteria Moderate /HPF (0-FEW) Urine Mucus Mod /LPF Urine Opiates Screen Neg (NEG) Urine Methadone Screen Neg (NEG) Urine Barbiturates Neg (NEG) Urine Phencyclidine Screen Neg (NEG) Urine Amphetamine/Methamphetamine Neg (NEG) Urine Benzodiazepines Screen Neg (NEG) Urine Cocaine Screen Neg (NEG) Urine Cannabinoids Screen Neg (NEG) Urine Ethyl Alcohol Neg (NEG) POC Urine HCG, Qualitative Hcg negative (Negative) Laboratory Tests 08/13/19 19:20 Laboratory Tests 08/13/19 19:20 EKG EKG Normal sinus rhythm no obvious ischemia was identified no STEMI normal rate[] Radiology/Procedures Radiology/Procedures [] Impressions: IMPRESSION: No acute intracranial abnormality. Exposure: One or more of the following in the visualized dose reduction techniques were utilized for this examination: 1. Automated exposure control 2. Adjustment of the MA and/or KV according to patient size Use of iterative of reconstructive technique Electronically signed by: Lori Aguilar MD (08/13/2019 8:22 PM) [facility] DICTATED and SIGNED BY: LORI AGUILAR MD DATE: 08/13/192021 Course & Med Decision Making Course & Med Decision Making Pertinent Labs and Imaging studies reviewed. (See chart for details) []33-year-old female with known seizure disorder she tells me although she is not on antiepileptics and she takes Benadryl for the symptoms of this as suspect diagnosis in my opinion nevertheless she reported a seizure earlier in the day she also reported some vague chest discomfort which she says is very similar. She has one of these events . She actually just initially came up to triage requesting a work note to be able to go back to work after she told her boss she had a seizure but then blood pressure was elevated she was endorsing some intermittent tingling in the left hand in the left face Blood pressures improved in the emergency room after treatment usual lab workup showed mild hypokalemia repleted that head CT is currently pending. ct head negative pt basically tells me she is used to these symptoms, she did not take her bp med yet. she has frequent spells like this she is neuro intact in the er toradol given for h/a gradual onset no sharp neck pain she says that is commonf or her as well. head ct negative. f/u [facility] pmd for bp check and monitoring of her symptoms Dragon Disclaimer Dragon Disclaimer This electronic medical record was generated, in whole or in part, using a voice recognition dictation system. Departure Departure Impression: Primary Impression: Tingling Additional Impression: Hypertension Disposition: 01 HOME, SELF-CARE Condition: STABLE Referrals: NO PCP (PCP) Problem Qualifiers DARNELL VIDALES MD Aug 13, 2019 19:02
[2019-08-13] MEDS ORDERED: diphenhydrAMINE 50 MG/ML VIAL IVP ONE (19:30)
[2019-08-13 19:34] LABS: BASO # 0.1 x10^3/uL (0.0-0.2); BASO % 1 % (0-3); EOS # 0.2 x10^3/uL (0.0-0.7); EOS % 3 % (0-3); HEMATOCRIT 42.9 % (36.0-47.0); HEMOGLOBIN 14.7 g/dL (12.0-15.5); LYMPH # 1.9 x10^3/uL (1.0-4.8); LYMPH % 23 % (24-48); MEAN CORPUSCULAR HEMOGLOBIN 33 pg (25-35); MEAN CORPUSCULAR HGB CONC 34 g/dL (31-37); MEAN CORPUSCULAR VOLUME 97 fL (79-100); MONO # 0.4 x10^3/uL (0.0-1.1); MONO % 5 % (0-9); NEUT # 5.7 x10^3/uL (1.8-7.7); NEUT % 70 % (31-73); PLATELET COUNT 222 x10^3/uL (140-400); RED BLOOD COUNT 4.44 x10^6/uL (3.50-5.40); RED CELL DISTRIBUTION WIDTH 14.2 % (11.5-14.5); WHITE BLOOD COUNT 8.2 x10^3/uL (4.0-11.0)
[2019-08-13 19:39] LABS: BILIRUBIN,URINE NEGATIVE (NEG); CLARITY,URINE CLEAR; COLOR,URINE YELLOW; NITRITE,URINE NEGATIVE (NEG); PH,URINE 6.5; PROTEIN,URINE NEGATIVE (NEG-TRACE); UROBILINOGEN,URINE 0.2 mg/dL (0.2 mg/dL)
[2019-08-13 19:43] LABS: CREATININE 1.2 mg/dL (0.6-1.0); GFR 51.4; POTASSIUM 3.1 mmol/L (3.5-5.1)
[2019-08-13] MEDS ORDERED: cloNIDine HCL 0.1 MG TABLET PO ONE (19:45)
[2019-08-13 19:47] LABS: BACTERIA,URINE MODERATE /HPF (0-FEW); BARBITURATES NEG (NEG); BENZODIAZEPINES NEG (NEG); CANNABINOIDS NEG (NEG); COCAINE NEG (NEG); METHADONE NEG (NEG); OPIATES NEG (NEG); PHENCYCLIDINE NEG (NEG); RBC,URINE OCC /HPF (0-2); SQUAMOUS EPITHELIAL CELL,UR MANY /LPF
[2019-08-13 19:48] LABS: AMPHETAMINE/METHAMPHETAMINE NEG (NEG)
[2019-08-13 19:49] LABS: ALBUMIN 3.1 g/dL (3.4-5.0); ALBUMIN/GLOBULIN RATIO 0.8 (1.0-1.7); TOTAL BILIRUBIN 0.5 mg/dL (0.2-1.0); TOTAL PROTEIN 7.2 g/dL (6.4-8.2)
--- NOTE | 2019-08-13 20:25 | RAD ---
Exam: CT head INDICATION: Numbness TECHNIQUE: Sequential axial images through the head were obtained without the administration of IV contrast. Comparisons: None FINDINGS: No focal parenchymal lesion or hemorrhage is identified. There is no midline shift or sulcal effacement. No acute vascular territory infarction is identified. Cruz-white distinction is preserved. The ventricular system is within normal limits without compression hydrocephalus. The basal cisterns are well maintained. The visualized portions of the paranasal sinuses and mastoid air cells are well-pneumatized. No acute fractures. IMPRESSION: No acute intracranial abnormality. Exposure: One or more of the following in the visualized dose reduction techniques were utilized for this examination: 1. Automated exposure control 2. Adjustment of the MA and/or KV according to patient size Use of iterative of reconstructive technique Electronically signed by: Socorro Ruiz MD (08/13/2019 8:22 PM) [facility]
[2019-08-13] MEDS ORDERED: POTASSIUM CHLORIDE 20 MEQ TABLET.ER. PO ONE (20:30)
[2019-08-13] MEDS ORDERED: KETOROLAC 15 MG/ML VIAL. IV ONE (20:45)
[2019-08-13 21:00] VITALS: BP 198/108
--- NOTE | 2019-08-14 11:21 | EKG ---
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
== END 2019-08-13 21:25 | disposition home or self-care (01) ==
LOC: ER 18:40
DX: R20.2 Paresthesia of skin (principal); I10 Essential (primary) hypertension; R51 Headache; R56.9 Unspecified convulsions; Z88.1 Allergy status to other antibiotic agents
CPT/HCPCS: 36415; 70450; 80053; 80307; 81001; 81025; 84484; 85025; 87086; 93005; 96374; 96375; 99285; G0480; J1200; J1885; J2060